=== PATIENT | female | born 1980 | race Caucasian/White ===

== ENCOUNTER 2016-12-11 07:48 | Emergency (ER) | payer SELFPAY ==
--- NOTE | 2016-12-11 09:25 | ED NURSING NOTES ---
Clinical Report - Nurses [facility] [address] [place] [address] 12/11/2016 7:50 Patient: CRESCENCIO ROBERTS TRIAGE Acuity: LEVEL 4. Chief Complaint: (Possible Opiate Withdrawls). 07:59 12/11/16. 07:59 12/11/16. ( Step Mother states that pt has been taking large dose of methadone/Xanax/Percocet, pt wanted to stop taking these meds, last time pt took these meds was . Now pt is withdrawing from these meds. Step mother states that pt has been getting these meds from a family member and they are not her RX.). SEPSIS SCREEN: Sepsis Screen. Negative (no infection suspected/documented). KALEY COMA SCORE: [place] Coma Scale: 15- eyes open spontaneously (4); best verbal response- oriented x 4 (5); best motor response- obeys commands (6). --08:07 Jey Bowman R.N. 07:58 12/11/16. BP: 129/71. HR: 65. RR: 18. O2 saturation: 99% on room air. Temp: 98.7 F (oral). --08:07 Jey Bowman R.N. Weight: 90.7 kg stated. Height/Length: 65 inches Per Patient. BMI: 33.3. --07:59 Jey Bowman R.N. Medications Methadone HCl Oral, , 70-80mg daily. --08:03 Jey Bowman R.N. Percocet Oral, as needed, Unsure of dose, TID. --08:04 Jey Bowman R.N. Xanax Oral, , 2 mg at night, two times a day. --08:04 Jey Bowman R.N. Medication/allergy information source: the patient and patient's family. --08:07 Jey Bowman R.N. Allergies No Known Drug Allergy. --08:05 Jey Bowman R.N. History Arrived by private vehicle. Historian: patient. Accompanied by family. Primary physician (Lamar Triana). 07:59 12/11/16. 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 PAST MEDICAL HX: Immunizations: up-to-date. Last normal menstrual period- 1 month ago. Denies current . SOCIAL HX: Never smoker. Occasional alcohol use. No drug use. No infectious disease exposure. ABUSE ASSESSMENT: No report of abuse. FALL RISK ASSESSMENT: Fall risk assessment completed. No fall risk identified. NUTRITIONAL RISK ASSESSMENT: The nutritional risk assessment revealed no deficiencies. FUNCTIONAL ASSESSMENT: Functional assessment: no impairments noted. LEARNING NEEDS ASSESSMENT: The learning needs assessment revealed no barriers. SKIN INTEGRITY ASSESSMENT: Skin integrity risk assessment completed. No skin integrity risk identified. --08:07 Jey Bowman R.N. PROBLEMS: Seizure. --08:06 Jey Bowman R.N. Anxiety attack. Depression. --08:06 Jey Bowman R.N. ADDITIONAL SURGERIES: Neck Surgery. --08:05 Jey Bowman R.N. Assessment 07:59 12/11/16. --08:07 Jey Bowman R.N. Interventions 07:59 12/11/16. 07:59 12/11/16. ID and allergy band on patient. To treatment room. --08:07 Jey Bowman R.N. PHYSICAL ASSESSMENT 08:07 12/11/16. Ambulatory to room. GENERAL / NEURO / PSYCH: Oriented X 4. Appears anxious. RESPIRATORY: Respirations not labored. CVS: Capillary refill less than 2 seconds. SKIN: Skin is warm and dry. --08:07 Jey Bowman R.N. NURSING PROGRESS NOTES 08:07 12/11/16. The plan of care for this patient has been created. Patient gowned. Head of bed elevated. Reassurance given. Two patient identifiers checked. Call light placed in reach. Side rails up x 2. Bed placed in lowest position. Brakes of bed on. Patient ready for evaluation- chart flagged and notification provided. --08:07 Jey Bowman R.N. ( called [facility] in [place] . Pt. is to call for a pre-admit screening. [phone]). --09:29 Kat Leon, ER Tech1 09:34 12/11/2016 Clonidine PO 0.1 mg given. Allergies verified and confirmed 5 rights. --09:34 Jey Bowman R.N. 09:34 12/11/2016 Ativan (LORazepam) IM 1 mg given. Given in the right ventral gluteus. Allergies verified, confirmed 5 rights and sedative warning given to the patient. --09:34 Jey Bowman R.N. 09:34 12/11/2016 Phenergan (Promethazine HCl) IM 25 mg given. Given in the right gluteus renetta. Allergies verified, confirmed 5 rights and sedative warning given to the patient. --09:34 Jey Bowman R.N. 09:35 12/11/2016 Zofran ODT (Ondansetron) PO 4 mg given. Allergies verified and confirmed 5 rights. --09:35 Jey Bowman R.N. DISPOSITION / DISCHARGE 10:12/11/16. Condition at departure: improved. The goals identified in the patient's plan of care were met. No learning barriers present. Discharge instructions provided and reviewed with the patient and family. Reviewed warnings. Reviewed medication(s). Treatments reviewed. Patient and family verbalized understanding. Written instructions provided in Azeri. ( Info given for Detox pt will follow up and make an intake appt today). The patient was discharged by the physician. She was discharged home and accompanied by family. She left the Emergency Department ambulatory and via private vehicle. Family member driving. FALL RISK ASSESSMENT: Fall risk assessment completed. No fall risk identified. --10:04 Jey Bowman R.N. 10:04 12/11/16. Departure time: 10:04. --10:04 Jey Bowman R.N. 10:03 12/11/16. BP: 132/76. HR: 67. RR: 18. O2 saturation: 99% on room air. Temp: 98.2 F (oral). Pain level now: 09/06. --10:06 Jey Bowman R.N. Locked/Released at 12/11/2016 10:07 by Jey Bowman R.N.
--- NOTE | 2016-12-11 09:25 | ED ORDER SUMMARY ---
..... Patient: CRESCENCIO ROBERTS OrderSheet [facility] VisitID: [id number] [address] [place] [address] 36y, F Registration Date/Time: 12/11/2016 ORDER SHEET Weight: 90.7 kg (stated) Allergies: No Known Drug Allergy GENERAL ORDERS: MEDICATION ORDERS: Clonidine PO 0.1 mg (NOW) (:12/11/2016 [facility]) (Ack 9:22 JBoardley R.N.) (9:34 JBoardley R.N.) Ativan IM 1 mg (NOW) (:12/11/2016 [facility]) (Ack 9:22 JBoardley R.N.) (9:34 JBoardley R.N.) Phenergan IM 25 mg (NOW) (:12/11/2016 [facility]) (Ack 9:22 JBoardley R.N.) (9:34 JBoardley R.N.) Zofran ODT PO 4 mg (NOW) (:12/11/2016 [facility]) (Ack 9:22 JBoardley R.N.) (9:35 JBoardley R.N.) IV FLUIDS: ORDER SHEET NOTES: [Electronically signed by Jey Bowman R.N. (10:07 12/11/2016)] [Electronically signed by Jasvir Fong DO (10:48 12/12/2016)] [Electronically locked/signed by Jey Bowman R.N. (10:12/11/2016)]
--- NOTE | 2016-12-11 09:25 | ED ORDER SUMMARY ---
..... Patient: CRESCENCIO ROBERTS OrderSheet [facility] VisitID: [id number] [address] [place] [address] 36y, F Registration Date/Time: 12/11/2016 ORDER SHEET Weight: 90.7 kg (stated) Allergies: No Known Drug Allergy GENERAL ORDERS: MEDICATION ORDERS: Clonidine PO 0.1 mg (NOW) (:12/11/2016 [facility]) (Ack 9:22 JBoardley R.N.) (9:34 JBoardley R.N.) Ativan IM 1 mg (NOW) (:12/11/2016 [facility]) (Ack 9:22 JBoardley R.N.) (9:34 JBoardley R.N.) Phenergan IM 25 mg (NOW) (:12/11/2016 [facility]) (Ack 9:22 JBoardley R.N.) (9:34 JBoardley R.N.) Zofran ODT PO 4 mg (NOW) (:12/11/2016 [facility]) (Ack 9:22 JBoardley R.N.) (9:35 JBoardley R.N.) IV FLUIDS: ORDER SHEET NOTES: [Electronically signed by Jey Bowman R.N. (10:07 12/11/2016)] [Electronically signed by Jasvir Fong DO (10:48 12/12/2016)] [Electronically locked/signed by Jey Bowman R.N. (10:12/11/2016)]
--- NOTE | 2016-12-11 09:25 | ED NURSING NOTES ---
Clinical Report - Nurses [facility] [address] [place] [address] 12/11/2016 7:50 Patient: CRESCENCIO ROBERTS TRIAGE Acuity: LEVEL 4. Chief Complaint: (Possible Opiate Withdrawls). 07:59 12/11/16. 07:59 12/11/16. ( Step Mother states that pt has been taking large dose of methadone/Xanax/Percocet, pt wanted to stop taking these meds, last time pt took these meds was . Now pt is withdrawing from these meds. Step mother states that pt has been getting these meds from a family member and they are not her RX.). SEPSIS SCREEN: Sepsis Screen. Negative (no infection suspected/documented). KALEY COMA SCORE: [place] Coma Scale: 15- eyes open spontaneously (4); best verbal response- oriented x 4 (5); best motor response- obeys commands (6). --08:07 Jey Bowman R.N. 07:58 12/11/16. BP: 129/71. HR: 65. RR: 18. O2 saturation: 99% on room air. Temp: 98.7 F (oral). --08:07 Jey Bowman R.N. Weight: 90.7 kg stated. Height/Length: 65 inches Per Patient. BMI: 33.3. --07:59 Jey Bowman R.N. Medications Methadone HCl Oral, , 70-80mg daily. --08:03 Jey Bowman R.N. Percocet Oral, as needed, Unsure of dose, TID. --08:04 Jey Bowman R.N. Xanax Oral, , 2 mg at night, two times a day. --08:04 Jey Bowman R.N. Medication/allergy information source: the patient and patient's family. --08:07 Jey Bowman R.N. Allergies No Known Drug Allergy. --08:05 Jey Bowman R.N. History Arrived by private vehicle. Historian: patient. Accompanied by family. Primary physician (Lamar Triana). 07:59 12/11/16. 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 PAST MEDICAL HX: Immunizations: up-to-date. Last normal menstrual period- 1 month ago. Denies current . SOCIAL HX: Never smoker. Occasional alcohol use. No drug use. No infectious disease exposure. ABUSE ASSESSMENT: No report of abuse. FALL RISK ASSESSMENT: Fall risk assessment completed. No fall risk identified. NUTRITIONAL RISK ASSESSMENT: The nutritional risk assessment revealed no deficiencies. FUNCTIONAL ASSESSMENT: Functional assessment: no impairments noted. LEARNING NEEDS ASSESSMENT: The learning needs assessment revealed no barriers. SKIN INTEGRITY ASSESSMENT: Skin integrity risk assessment completed. No skin integrity risk identified. --08:07 Jey Bowman R.N. PROBLEMS: Seizure. --08:06 Jey Bowman R.N. Anxiety attack. Depression. --08:06 Jey Bowman R.N. ADDITIONAL SURGERIES: Neck Surgery. --08:05 Jey Bowman R.N. Assessment 07:59 12/11/16. --08:07 Jey Bowman R.N. Interventions 07:59 12/11/16. 07:59 12/11/16. ID and allergy band on patient. To treatment room. --08:07 Jey Bowman R.N. PHYSICAL ASSESSMENT 08:07 12/11/16. Ambulatory to room. GENERAL / NEURO / PSYCH: Oriented X 4. Appears anxious. RESPIRATORY: Respirations not labored. CVS: Capillary refill less than 2 seconds. SKIN: Skin is warm and dry. --08:07 Jey Bowman R.N. NURSING PROGRESS NOTES 08:07 12/11/16. The plan of care for this patient has been created. Patient gowned. Head of bed elevated. Reassurance given. Two patient identifiers checked. Call light placed in reach. Side rails up x 2. Bed placed in lowest position. Brakes of bed on. Patient ready for evaluation- chart flagged and notification provided. --08:07 Jey Bowman R.N. ( called [facility] in [place] . Pt. is to call for a pre-admit screening. [phone]). --09:29 Kat Leon, ER Tech1 09:34 12/11/2016 Clonidine PO 0.1 mg given. Allergies verified and confirmed 5 rights. --09:34 Jey Bowman R.N. 09:34 12/11/2016 Ativan (LORazepam) IM 1 mg given. Given in the right ventral gluteus. Allergies verified, confirmed 5 rights and sedative warning given to the patient. --09:34 Jey Bowman R.N. 09:34 12/11/2016 Phenergan (Promethazine HCl) IM 25 mg given. Given in the right gluteus renetta. Allergies verified, confirmed 5 rights and sedative warning given to the patient. --09:34 Jey Bowman R.N. 09:35 12/11/2016 Zofran ODT (Ondansetron) PO 4 mg given. Allergies verified and confirmed 5 rights. --09:35 Jey Bowman R.N. DISPOSITION / DISCHARGE 10:12/11/16. Condition at departure: improved. The goals identified in the patient's plan of care were met. No learning barriers present. Discharge instructions provided and reviewed with the patient and family. Reviewed warnings. Reviewed medication(s). Treatments reviewed. Patient and family verbalized understanding. Written instructions provided in Bulgarian. ( Info given for Detox pt will follow up and make an intake appt today). The patient was discharged by the physician. She was discharged home and accompanied by family. She left the Emergency Department ambulatory and via private vehicle. Family member driving. FALL RISK ASSESSMENT: Fall risk assessment completed. No fall risk identified. --10:04 Jey Bowman R.N. 10:04 12/11/16. Departure time: 10:04. --10:04 Jey Bowman R.N. 10:03 12/11/16. BP: 132/76. HR: 67. RR: 18. O2 saturation: 99% on room air. Temp: 98.2 F (oral). Pain level now: 09/06. --10:06 Jey Bowman R.N. Locked/Released at 12/11/2016 10:07 by Jey Bowman R.N.
--- NOTE | 2016-12-11 09:25 | ED CLINICAL REPORT ---
Clinical Report - Physicians/Mid Levels [facility] [address] [place] [address] 12/11/2016 7:50 Patient: CRESCENCIO ROBERTS Time Seen: 09:00. Arrived- By private vehicle. Historian- patient and family. HISTORY OF PRESENT ILLNESS Chief Complaint: AGITATED. Symptoms started yesterday. Duration of substance abuse- about 2 years. Substances abused: (about 24 hours ago). The patient has had nausea. She has had moderate vomiting. The vomiting has occurred several times. No blood-tinged emesis or frankly bloody emesis. Step Mother states that pt has been taking large dose of methadone/Xanax/Percocet, pt wanted to stop taking these meds, last time pt took these meds was . Now pt is withdrawing from these meds. Step mother states that pt has been getting these meds from a family member and they are not her RX. The symptoms are described as moderate. No injuries noted. Similar symptoms previously: Recent medical care: Not recently seen/assessed. REVIEW OF SYSTEMS Last normal menstrual period was 4 weeks ago. No sweats, headache, weakness, chest pain or palpitations. No black stools, numbness, bloody stools, sore throat or difficulty breathing. No skin abscess. No difficulty walking. The patient has had moderate diarrhea. It has been watery. No bloody diarrhea. All systems otherwise negative, except as recorded above. PAST HISTORY Primary physician (Lamar Triana) PROBLEMS: Seizure. Anxiety attack. Depression. SURGERIES: Neck Surgery. Medications: Xanax Oral, , 2 mg at night, two times a day. Percocet Oral, as needed, Unsure of dose, TID. Methadone HCl Oral, , 70-80mg daily. Allergies: No Known Drug Allergy. SOCIAL HISTORY Never smoker. Occasional alcohol use. No drug use. Has social support. ADDITIONAL NOTES The nursing notes have been reviewed. PHYSICAL EXAM Vital Signs: 12/11/2016 07:58 BP: 129/71. HR: 65. RR: 18. O2 saturation: 99%. Temp: 98.7 F. Appearance: Alert. Oriented X3. Anxious. The patient is agitated. Odor of alcohol is not present. Speech is not slurred. Patient in mild distress. Head: Head atraumatic. Eyes: Pupils equal, round and reactive to light. ENT: Normal ENT inspection. Airway intact. Moist mucous membranes. Pharynx normal. Neck: Normal inspection. Neck supple. CVS: Normal heart rate and rhythm. Heart sounds normal. Pulses normal. Respiratory: No respiratory distress. Breath sounds normal. Abdomen: Soft and nontender. Obese. Back: Normal inspection. No CVA tenderness. Skin: Skin warm and dry. Normal skin color. No rash. Normal skin turgor. Extremities: Extremities exhibit normal ROM. No calf tenderness. No lower extremity edema. Neuro: Alert. Oriented X 3. Speech normal. Cranial nerves normal (as tested). No cerebellar findings. No motor deficit. No sensory deficit. Reflexes normal. Reflex exam: right patellar 2+, left patellar 2+, right Achilles 1+ and left Achilles 1+. LABS, X-RAYS, AND EKG Pulse Oximetry: 12/11/2016 07:58 O2 saturation: 99%. (FIO2 - room air). Interpretation: normal. PROGRESS AND PROCEDURES Course of Care: Ativan 1mg IM given. Phenergan 25mg IM given. Zofran 4 mg ODT PO given. Clonidine 0.1 mg PO given. Early withdrawal now - normal VS. Pt has pcp and will f/u closely and / or return to emergency for new or worsening symptoms or any concerns. Good social support. Patient/family counseled. Prior records not ordered. Disposition: Discharged. Condition: stable and improved. CLINICAL IMPRESSION Chronic substance abuse- benzodiazepines, oxycodone with anxiety. INSTRUCTIONS Do not work for five days. No alcohol. (I strongly recommend you go to a detox center as soon as possible). Warnings: Further evaluation is necessary. It is very important to follow up with a physician. SEDATIVE MEDICATION: You were given sedative medication during your visit. Do not drive or operate dangerous machinery. CONTROLLED SUBSTANCE WARNINGS. GENERAL WARNINGS: Return or contact your physician immediately if your condition worsens or changes unexpectedly, if not improving as expected, or if other problems arise. Your Current Medications: STOP TAKING THE FOLLOWING MEDICATIONS: Methadone HCl Oral : 70-80mg daily. Percocet Oral : prn, Unsure of dose, TID. Xanax Oral : 2 mg at night, two times a day. Prescription Medications: Zofran (orally disintegrating tablets) 4 mg: take 1-2 orally every 8 hours as needed for nausea and vomiting. Dispense ten (10). No refill. Substitution is permissible. Ativan 0.5 mg: take 1-2 orally every 8 hours as needed for anxiety. Dispense ten (10). No refill. Substitution is permissible. Clonidine 0.1 mg: Take 1 orally every 12 hours. Dispense thirty (30). No refills. Phenergan suppositories 25 mg: Insert 1 rectally every 4 to 6 hours as needed for nausea or vomiting. Dispense ten (10). No refills. Substitution is permissible. Follow-up: Follow up with your doctor tomorrow. (Electronically signed by Jasvir Fong DO 12/12/2016 10:48)
--- NOTE | 2016-12-12 10:49 | ED DISCHARGE INSTRUCTIONS ---
Patient: CRESCENCIO ROBERTS General Instructions [facility] VisitID: [id number] [place] [address] 36y, F Registration Date/Time: 12/11/2016 Chronic substance abuse- benzodiazepines, oxycodone with anxiety. INSTRUCTIONS Do not work for five days. No alcohol. (I strongly recommend you go to a detox center as soon as possible). Warnings: Further evaluation is necessary. It is very important to follow up with a physician. SEDATIVE MEDICATION: You were given sedative medication during your visit. Do not drive or operate dangerous machinery. CONTROLLED SUBSTANCE WARNINGS. GENERAL WARNINGS: Return or contact your physician immediately if your condition worsens or changes unexpectedly, if not improving as expected, or if other problems arise. Your Current Medications: STOP TAKING THE FOLLOWING MEDICATIONS: Methadone HCl Oral : 70-80mg daily. Percocet Oral : prn, Unsure of dose, TID. Xanax Oral : 2 mg at night, two times a day. Prescription Medications: Zofran (orally disintegrating tablets) 4 mg: take 1-2 orally every 8 hours as needed for nausea and vomiting. Dispense ten (10). No refill. Substitution is permissible. Ativan 0.5 mg: take 1-2 orally every 8 hours as needed for anxiety. Dispense ten (10). No refill. Substitution is permissible. Clonidine 0.1 mg: Take 1 orally every 12 hours. Dispense thirty (30). No refills. Phenergan suppositories 25 mg: Insert 1 rectally every 4 to 6 hours as needed for nausea or vomiting. Dispense ten (10). No refills. Substitution is permissible. Follow-up: Follow up with your doctor tomorrow. ADDITIONAL INFORMATION Alcohol Withdrawal Alcohol withdrawal symptoms occur if you have been drinking steadily for at least several days, and your body gets used to the effect of alcohol. When you suddenly stop drinking (or, even just cut down your daily intake but continue to drink), you may develop alcohol withdrawal, also called the The usual symptoms last 3-4 days and include nervousness, shakiness, nausea, sweating, sleeplessness. In severe cases hallucinations (seeing things that are not there) and seizures can occur. Home Care: You will need plenty of rest and fluids over the next several days. Eat regular meals. Of course, do not drink any more alcohol. During this time, it is best that you stay with family or friends who can help and support you. You can also admit yourself to a residential detox program. Do not drive until all symptoms are gone and you are feeling better. If you were given sedative medication to reduce your symptoms, do not take it more often than prescribed and never take it with alcohol. Follow Up: Once you have gone through the withdrawal symptoms, you have fought half of the prince. To avoid the risk of returning to your previous drinking pattern, it is essential that you get follow-up support and treatment. Alcoholics Anonymous offers support through a self-help fellowship. There are no dues or fees. See the Yellow Pages and call for time and place of meetings. www.aa.org [facility] offers support to families of alcohol users. 411.997.9228 www.al-anon.org National [place] On Alcoholism And Drug Dependence 576-696-9434 www.ncadd.org Residential alcohol detox programs are available. Check the Yellow Pages under Drug Abuse & Treatment Centers. Get Prompt Medical Attention if any of the following occur: Severe shakiness Hallucinations Seizure Fever over 100.5 F (38.0 C) oral Headache, confusion, extreme drowsiness, inability to awaken Increasing upper abdominal pain Repeated vomiting or vomiting blood Opiate Abuse Use and abuse of heroin or prescription pain medicines (Vicodin, codeine) may lead to physical ADDICTION or psychological DEPENDENCE. Once this occurs, you are at greater risk for any of the following: - Craving for the drug and unable to stop using the drug even though you think you want to stop (psychological dependence) - Drug withdrawal symptoms if you stop taking the drug (physical addiction) - Loss of your job or your family - Arrest, conviction and custodial sentence for possession of an illegal substance or for driving under the influence of such a substance - Accidental injuries to yourself or others while you are under the influence of the drug (in a car or at home). - HIV infection (much greater risk if you use IV drugs) - Other sexually transmitted diseases (Herpes, chlamydia, gonorrhea and others) - Severe and fatal infection of the heart valves (if you use IV drugs) - Stroke, heart attack, hepatitis B or C, kidney failure - from overdose Home Care: 1) Admit you have a drug problem. Ask for help from your family and close friends. 2) Seek professional help. This could be individual psychotherapy, counseling, or a drug treatment program (outpatient or residential). 3) Join a self-help group for drug abuse. 4) Avoid friends who abuse drugs themselves or tempt you to continue your habit 5) Eat a balanced diet and begin a regular exercise program. Follow Up with your doctor or as advised by our staff. Contact one of the resources below for help. [employer] [place] on Alcoholism and Drug Dependence, www.ncadd.org 709-351-KYPX Narcotics Anonymous (check your phone book for a local listing or call 501-300-6141) www.na.org National Alcohol and Substance Abuse Information Center (for referral to treatment programs) Www.eBureau 522-947-5801 Get Prompt Medical Attention if any of the following occur: -- Symptoms of withdrawal (agitation, anxiety, trembling, sweats, diarrhea, unable to sleep) -- Chest pain -- Unexplained fever over 100.4 F (38.0 C) -- Excessive drowsiness or inability to be awakened -- Slow breathing under 8 breaths per minute -- Shortness of breath or cough with colored sputum -- Redness, swelling or tenderness at an injection site Ondansetron Oral disintegrating tablet What is this medicine? ONDANSETRON (on IFRAH se davy) is used to treat nausea and vomiting caused by chemotherapy. It is also used to prevent or treat nausea and vomiting after surgery. How should I use this medicine? These tablets are made to dissolve in the mouth. Do not try to push the tablet through the foil backing. With dry hands, peel away the foil backing and gently remove the tablet. Place the tablet in the mouth and allow it to dissolve, then swallow. While you may take these tablets with water, it is not necessary to do so. Talk to your tinning equipment tender regarding the use of this medicine in children. Special care may be needed. What side effects may I notice from receiving this medicine? Side effects that you should report to your doctor or health grounds caretaker as soon as possible: allergic reactions like skin rash, itching or hives, swelling of the face, lips, or tongue breathing problems dizziness fast or irregular heartbeat feeling faint or lightheaded, falls fever and chills swelling of the hands and feet tightness in the chest Side effects that usually do not require medical attention (report to your doctor or health grounds caretaker if they continue or are bothersome): constipation or diarrhea headache What may interact with this medicine? Do not take this medicine with any of the following medications: -apomorphine -cisapride -dofetilide -dronedarone -pimozide -thioridazine -ziprasidone This medicine may also interact with the following medications: -carbamazepine -phenytoin -rifampicin -tramadol -other medicines that prolong the QT interval (cause an abnormal heart rhythm) What if I miss a dose? If you miss a dose, take it as soon as you can. If it is almost time for your next dose, take only that dose. Do not take double or extra doses. Where should I keep my medicine? Keep out of the reach of children. Store between 2 and 30 degrees C (36 and 86 degrees F). Throw away any unused medicine after the expiration date. What should I tell my health care provider before I take this medicine? They need to know if you have any of these conditions: heart disease history of irregular heartbeat liver disease low levels of magnesium or potassium in the blood an unusual or allergic reaction to ondansetron, granisetron, other medicines, foods, dyes, or preservatives or trying to get breast-feeding What should I watch for while using this medicine? Check with your doctor or health grounds caretaker as soon as you can if you have any sign of an allergic reaction. Lorazepam Oral tablet What is this medicine? LORAZEPAM (marvin A ze paulette) is a benzodiazepine. It is used to treat anxiety. How should I use this medicine? Take this medicine by mouth with a glass of water. Follow the directions on the prescription label. If it upsets your stomach, take it with food or milk. Take your medicine at regular intervals. Do not take it more often than directed. Do not stop taking except on the advice of your doctor or health grounds caretaker. Talk to your tinning equipment tender regarding the use of this medicine in children. Special care may be needed. What side effects may I notice from receiving this medicine? Side effects that you should report to your doctor or health grounds caretaker as soon as possible: changes in vision confusion depression mood changes, excitability or aggressive behavior movement difficulty, staggering or jerky movements muscle cramps restlessness weakness or tiredness Side effects that usually do not require medical attention (report to your doctor or health grounds caretaker if they continue or are bothersome): constipation or diarrhea difficulty sleeping, nightmares dizziness, drowsiness headache nausea, vomiting What may interact with this medicine? barbiturate medicines for inducing sleep or treating seizures, like phenobarbital clozapine medicines for depression, mental problems or psychiatric disturbances medicines for sleep phenytoin probenecid theophylline valproic acid What if I miss a dose? If you miss a dose, take it as soon as you can. If it is almost time for your next dose, take only that dose. Do not take double or extra doses. Where should I keep my medicine? Keep out of the reach of children. This medicine can be abused. Keep your medicine in a safe place to protect it from theft. Do not share this medicine with anyone. Selling or giving away this medicine is dangerous and against the law. Store at room temperature between 20 and 25 degrees C (68 and 77 degrees F). Protect from light. Keep container tightly closed. Throw away any unused medicine after the expiration date. What should I tell my health care provider before I take this medicine? They need to know if you have any of these conditions: alcohol or drug abuse problem bipolar disorder, depression, psychosis or other mental health condition glaucoma kidney or liver disease lung disease or breathing difficulties myasthenia gravis Parkinson's disease seizures or a history of seizures suicidal thoughts an unusual or allergic reaction to lorazepam, other benzodiazepines, foods, dyes, or preservatives or trying to get breast-feeding What should I watch for while using this medicine? Visit your doctor or health grounds caretaker for regular checks on your progress. Your body may become dependent on this medicine, ask your doctor or health grounds caretaker if you still need to take it. However, if you have been taking this medicine regularly for some time, do not suddenly stop taking it. You must gradually reduce the dose or you may get severe side effects. Ask your doctor or health grounds caretaker for advice before increasing or decreasing the dose. Even after you stop taking this medicine it can still affect your body for several days. You may get drowsy or dizzy. Do not drive, use machinery, or do anything that needs mental alertness until you know how this medicine affects you. To reduce the risk of dizzy and fainting spells, do not stand or sit up quickly, especially if you are an older patient. Alcohol may increase dizziness and drowsiness. Avoid alcoholic drinks. Do not treat yourself for coughs, colds or allergies without asking your doctor or health grounds caretaker for advice. Some ingredients can increase possible side effects. Clonidine Hydrochloride Oral tablet What is this medicine? CLONIDINE (KLOE ni chantel) is used to treat high blood pressure. How should I use this medicine? Take this medicine by mouth with a glass of water. Follow the directions on the prescription label. Take your doses at regular intervals. Do not take your medicine more often than directed. Do not suddenly stop taking this medicine. You must gradually reduce the dose or you may get a dangerous increase in blood pressure. Ask your doctor or health grounds caretaker for advice. Talk to your tinning equipment tender regarding the use of this medicine in children. Special care may be needed. What side effects may I notice from receiving this medicine? Side effects that you should report to your doctor or health grounds caretaker as soon as possible: allergic reactions like skin rash, itching or hives, swelling of the face, lips, or tongue anxiety, nervousness chest pain depression fast, irregular heartbeat swelling of feet or legs unusually weak or tired Side effects that usually do not require medical attention (report to your doctor or health grounds caretaker if they continue or are bothersome): change in sex drive or performance constipation headache What may interact with this medicine? Do not take this medicine with any of the following medications: MAOIs like Carbex, Eldepryl, Marplan, Nardil, and Parnate This medicine may also interact with the following medications: barbiturate medicines for inducing sleep or treating seizures like phenobarbital certain medicines for blood pressure, heart disease, irregular heart beat certain medicines for depression, anxiety, or psychotic disturbances prescription pain medicines What if I miss a dose? If you miss a dose, take it as soon as you can. If it is almost time for your next dose, take only that dose. Do not take double or extra doses. Where should I keep my medicine? Keep out of the reach of children. Store at room temperature between 15 and 30 degrees C (59 and 86 degrees F). Protect from light. Keep container tightly closed. Throw away any unused medicine after the expiration date. What should I tell my health care provider before I take this medicine? They need to know if you have any of these conditions: kidney disease an unusual or allergic reaction to clonidine, other medicines, foods, dyes, or preservatives or trying to get breast-feeding What should I watch for while using this medicine? Visit your doctor or health grounds caretaker for regular checks on your progress. Check your heart rate and blood pressure regularly while you are taking this medicine. Ask your doctor or health grounds caretaker what your heart rate should be and when you should contact him or her. You may get drowsy or dizzy. Do not drive, use machinery, or do anything that needs mental alertness until you know how this medicine affects you. To avoid dizzy or fainting spells, do not stand or sit up quickly, especially if you are an older person. Alcohol can make you more drowsy and dizzy. Avoid alcoholic drinks. Your mouth may get dry. Chewing sugarless gum or sucking hard candy, and drinking plenty of water will help. Do not treat yourself for coughs, colds, or pain while you are taking this medicine without asking your doctor or health grounds caretaker for advice. Some ingredients may increase your blood pressure. If you are going to have surgery tell your doctor or health grounds caretaker that you are taking this medicine. Promethazine Hydrochloride Rectal suppository What is this medicine? PROMETHAZINE (proe METH a zeen) is an antihistamine. It is used to treat allergic reactions and to treat or prevent nausea and vomiting from illness or motion sickness. It is also used to make you sleep before surgery, and to help treat pain or nausea after surgery. How should I use this medicine? This medicine is for rectal use only. Do not take by mouth. Wash your hands before and after use. Take off the foil wrapping. Wet the tip of the suppository with cold tap water to make it easier to use. Lie on your side with your lower leg straightened out and your upper leg bent forward toward your stomach. Lift upper buttock to expose the rectal area. Apply gentle pressure to insert the suppository completely into the rectum, pointed end first. Hold buttocks together for a few seconds. Remain lying down for about 15 minutes to avoid having the suppository come out. Do not use more often than directed. Talk to your tinning equipment tender regarding the use of this medicine in children. Special care may be needed. This medicine should not be given to infants and children younger than 2 years old. What side effects may I notice from receiving this medicine? Side effects that you should report to your doctor or health grounds caretaker as soon as possible: blurred vision irregular heartbeat, palpitations or chest pain muscle or facial twitches pain or difficulty passing urine seizures skin rash slowed or shallow breathing unusual bleeding or bruising yellowing of the eyes or skin Side effects that usually do not require medical attention (report to your doctor or health grounds caretaker if they continue or are bothersome): headache nightmares, agitation, nervousness, excitability, not able to sleep (these are more likely in children) stuffy nose What may interact with this medicine? Do not take this medicine with any of the following medications: medicines called MAO Inhibitors like Nardil, Parnate, Marplan, Eldepryl other phenothiazines like trimethobenzamide This medicine may also interact with the following medications: barbiturates such as phenobarbital bromocriptine certain antidepressants certain antihistamines used in allergy or cold medicines epinephrine levodopa medicines for sleep medicines for mental problems and psychotic disturbances medicines for movement abnormalities as in Parkinson's disease, or for gastrointestinal problems muscle relaxants prescription pain medicines What if I miss a dose? If you miss a dose, use it as soon as you can. If it is almost time for your next dose, use only that dose. Do not use double doses. Where should I keep my medicine? Keep out of the reach of children. Store in a refrigerator between 2 and 8 degrees C (36 and 46 degrees F). Throw away any unused medicine after the expiration date. What should I tell my health care provider before I take this medicine? They need to know if you have any of these conditions: glaucoma high blood pressure or heart disease kidney disease liver disease lung or breathing disease, like asthma prostate trouble pain or difficulty passing urine seizures an unusual or allergic reaction to promethazine or phenothiazines, other medicines, foods, dyes, or preservatives or trying to get breast-feeding What should I watch for while using this medicine? Tell your doctor or health grounds caretaker if your symptoms do not start to get better in 1 to 2 days. You may get drowsy or dizzy. Do not drive, use machinery, or do anything that needs mental alertness until you know how this medicine affects you. To reduce the risk of dizzy or fainting spells, do not stand or sit up quickly, especially if you are an older patient. Alcohol may increase dizziness and drowsiness. Avoid alcoholic drinks. Your mouth may get dry. Chewing sugarless gum or sucking hard candy, and drinking plenty of water may help. Contact your doctor if the problem does not go away or is severe. This medicine may cause dry eyes and blurred vision. If you wear contact lenses you may feel some discomfort. Lubricating drops may help. See your eye doctor if the problem does not go away or is severe. This medicine can make you more sensitive to the sun. Keep out of the sun. If you cannot avoid being in the sun, wear protective clothing and use sunscreen. Do not use sun lamps or tanning beds/booths. If you are diabetic, check your blood-sugar levels regularly. You have been given the following additional information: Alcohol Withdrawal Opiate Abuse Ondansetron Oral disintegrating tablet Lorazepam Oral tablet Clonidine Hydrochloride Oral tablet Promethazine Hydrochloride Rectal suppository Do not work for five days. (Electronically signed by Jasvir Fong DO 12/12/2016 10:48)
--- NOTE | 2016-12-12 10:49 | ED MAR SUMMARY ---
..... Medication Administration Record [facility] [address] [place] [address] Patient: CRESCENCIO ROBERTS Visit ID: [id number] 36y, F Weight: 90.7 kg Height/Length: 65 in BMI: 33.3 ALLERGIES: No Known Drug Allergy Given 12/11/2016 Jey Bowman R.N. Medication Administered: CLONIDINE [PO], Dose: 0.1 mg PO. Medication Ordered: Clonidine PO 0.1 mg (NOW). Given 12/11/2016 Jey Bowman R.N. Medication Administered: ATIVAN [IM] (LORAZEPAM), Dose: 1 mg IM. Medication Ordered: Ativan IM 1 mg (NOW). Given 12/11/2016 Jey Bowman R.N. Medication Administered: PHENERGAN [IM] (PROMETHAZINE HCL), Dose: 25 mg IM. Medication Ordered: Phenergan IM 25 mg (NOW). Given 12/11/2016 Jey Bowman R.N. Medication Administered: ZOFRAN ODT [PO] (ONDANSETRON), Dose: 4 mg PO. Medication Ordered: Zofran ODT PO 4 mg (NOW).
--- NOTE | 2016-12-12 10:49 | ED MED RECONCILIATION SUMMARY ---
Patient: CRESECNCIO ROBERTS Medication Reconciliation Report [facility] VisitID: [id number] [place] [address] 36y, F Registration Date/Time: 12/11/2016 Weight: 90.7 kg Height/Length: 65 in. BMI: 33.3 ALLERGIES: No Known Drug Allergy The patient's Home Medications are listed below: STOP TAKING THE FOLLOWING MEDICATIONS: Methadone HCl Oral, 70-80mg daily Percocet Oral, Unsure of dose, TID Xanax Oral, 2 mg at night, two times a day The source(s) of the original Home Medication information: patient's family member patient The following Medications were given to the patient in the Emergency Department: Clonidine [PO] PO 0.1 mg, administered: 12/11/2016 9:34:00 AM Ativan [IM] IM 1 mg, administered: 12/11/2016 9:34:00 AM Phenergan [IM] IM 25 mg, administered: 12/11/2016 9:34:00 AM Zofran ODT [PO] PO 4 mg, administered: 12/11/2016 9:35:00 AM The following Medications were prescribed to the patient: Zofran (orally disintegrating tablets) 4 mg: take 1-2 orally every 8 hours as needed for nausea and vomiting. Dispense ten (10). No refill. Substitution is permissible. -- Jasvir Fong DO Ativan 0.5 mg: take 1-2 orally every 8 hours as needed for anxiety. Dispense ten (10). No refill. Substitution is permissible. -- Jasvir Fong DO Clonidine 0.1 mg: Take 1 orally every 12 hours. Dispense thirty (30). No refills. -- Jasvir Fong DO Phenergan suppositories 25 mg: Insert 1 rectally every 4 to 6 hours as needed for nausea or vomiting. Dispense ten (10). No refills. Substitution is permissible. -- Jasvir Fong DO
--- NOTE | 2016-12-12 10:49 | ED MED RECONCILIATION SUMMARY ---
Patient: CRESCENCIO ROBERTS Medication Reconciliation Report [facility] VisitID: [id number] [place] [address] 36y, F Registration Date/Time: 12/11/2016 Weight: 90.7 kg Height/Length: 65 in. BMI: 33.3 ALLERGIES: No Known Drug Allergy The patient's Home Medications are listed below: STOP TAKING THE FOLLOWING MEDICATIONS: Methadone HCl Oral, 70-80mg daily Percocet Oral, Unsure of dose, TID Xanax Oral, 2 mg at night, two times a day The source(s) of the original Home Medication information: patient's family member patient The following Medications were given to the patient in the Emergency Department: Clonidine [PO] PO 0.1 mg, administered: 12/11/2016 9:34:00 AM Ativan [IM] IM 1 mg, administered: 12/11/2016 9:34:00 AM Phenergan [IM] IM 25 mg, administered: 12/11/2016 9:34:00 AM Zofran ODT [PO] PO 4 mg, administered: 12/11/2016 9:35:00 AM The following Medications were prescribed to the patient: Zofran (orally disintegrating tablets) 4 mg: take 1-2 orally every 8 hours as needed for nausea and vomiting. Dispense ten (10). No refill. Substitution is permissible. -- Jasvir Fong DO Ativan 0.5 mg: take 1-2 orally every 8 hours as needed for anxiety. Dispense ten (10). No refill. Substitution is permissible. -- Jasvir Fong DO Clonidine 0.1 mg: Take 1 orally every 12 hours. Dispense thirty (30). No refills. -- Jasvir Fong DO Phenergan suppositories 25 mg: Insert 1 rectally every 4 to 6 hours as needed for nausea or vomiting. Dispense ten (10). No refills. Substitution is permissible. -- Jasvir Fong DO
--- NOTE | 2016-12-12 10:49 | ED MAR SUMMARY ---
..... Medication Administration Record [facility] [address] [place] [place] [address] Patient: CRESCENCIO ROBERTS Visit ID: [id number] 36y, F Weight: 90.7 kg Height/Length: 65 in BMI: 33.3 ALLERGIES: No Known Drug Allergy Given 12/11/2016 Jey Bowman R.N. Medication Administered: CLONIDINE [PO], Dose: 0.1 mg PO. Medication Ordered: Clonidine PO 0.1 mg (NOW). Given 12/11/2016 Jey Bowman R.N. Medication Administered: ATIVAN [IM] (LORAZEPAM), Dose: 1 mg IM. Medication Ordered: Ativan IM 1 mg (NOW). Given 12/11/2016 Jey Bowman R.N. Medication Administered: PHENERGAN [IM] (PROMETHAZINE HCL), Dose: 25 mg IM. Medication Ordered: Phenergan IM 25 mg (NOW). Given 12/11/2016 Jey Bowman R.N. Medication Administered: ZOFRAN ODT [PO] (ONDANSETRON), Dose: 4 mg PO. Medication Ordered: Zofran ODT PO 4 mg (NOW).
--- NOTE | 2016-12-12 10:49 | ED DISCHARGE INSTRUCTIONS ---
Patient: CRESCENCIO ROBERTS General Instructions [facility] VisitID: [id number] [place] [address] 36y, F Registration Date/Time: 12/11/2016 Chronic substance abuse- benzodiazepines, oxycodone with anxiety. INSTRUCTIONS Do not work for five days. No alcohol. (I strongly recommend you go to a detox center as soon as possible). Warnings: Further evaluation is necessary. It is very important to follow up with a physician. SEDATIVE MEDICATION: You were given sedative medication during your visit. Do not drive or operate dangerous machinery. CONTROLLED SUBSTANCE WARNINGS. GENERAL WARNINGS: Return or contact your physician immediately if your condition worsens or changes unexpectedly, if not improving as expected, or if other problems arise. Your Current Medications: STOP TAKING THE FOLLOWING MEDICATIONS: Methadone HCl Oral : 70-80mg daily. Percocet Oral : prn, Unsure of dose, TID. Xanax Oral : 2 mg at night, two times a day. Prescription Medications: Zofran (orally disintegrating tablets) 4 mg: take 1-2 orally every 8 hours as needed for nausea and vomiting. Dispense ten (10). No refill. Substitution is permissible. Ativan 0.5 mg: take 1-2 orally every 8 hours as needed for anxiety. Dispense ten (10). No refill. Substitution is permissible. Clonidine 0.1 mg: Take 1 orally every 12 hours. Dispense thirty (30). No refills. Phenergan suppositories 25 mg: Insert 1 rectally every 4 to 6 hours as needed for nausea or vomiting. Dispense ten (10). No refills. Substitution is permissible. Follow-up: Follow up with your doctor tomorrow. ADDITIONAL INFORMATION Alcohol Withdrawal Alcohol withdrawal symptoms occur if you have been drinking steadily for at least several days, and your body gets used to the effect of alcohol. When you suddenly stop drinking (or, even just cut down your daily intake but continue to drink), you may develop alcohol withdrawal, also called the The usual symptoms last 3-4 days and include nervousness, shakiness, nausea, sweating, sleeplessness. In severe cases hallucinations (seeing things that are not there) and seizures can occur. Home Care: You will need plenty of rest and fluids over the next several days. Eat regular meals. Of course, do not drink any more alcohol. During this time, it is best that you stay with family or friends who can help and support you. You can also admit yourself to a residential detox program. Do not drive until all symptoms are gone and you are feeling better. If you were given sedative medication to reduce your symptoms, do not take it more often than prescribed and never take it with alcohol. Follow Up: Once you have gone through the withdrawal symptoms, you have fought half of the prince. To avoid the risk of returning to your previous drinking pattern, it is essential that you get follow-up support and treatment. Alcoholics Anonymous offers support through a self-help fellowship. There are no dues or fees. See the Yellow Pages and call for time and place of meetings. www.aa.org [facility] offers support to families of alcohol users. 190.833.7345 www.al-anon.org National [place] On Alcoholism And Drug Dependence 253-574-6610 www.ncadd.org Residential alcohol detox programs are available. Check the Yellow Pages under Drug Abuse & Treatment Centers. Get Prompt Medical Attention if any of the following occur: Severe shakiness Hallucinations Seizure Fever over 100.5 F (38.0 C) oral Headache, confusion, extreme drowsiness, inability to awaken Increasing upper abdominal pain Repeated vomiting or vomiting blood Opiate Abuse Use and abuse of heroin or prescription pain medicines (Vicodin, codeine) may lead to physical ADDICTION or psychological DEPENDENCE. Once this occurs, you are at greater risk for any of the following: - Craving for the drug and unable to stop using the drug even though you think you want to stop (psychological dependence) - Drug withdrawal symptoms if you stop taking the drug (physical addiction) - Loss of your job or your family - Arrest, conviction and fpc sentence for possession of an illegal substance or for driving under the influence of such a substance - Accidental injuries to yourself or others while you are under the influence of the drug (in a car or at home). - HIV infection (much greater risk if you use IV drugs) - Other sexually transmitted diseases (Herpes, chlamydia, gonorrhea and others) - Severe and fatal infection of the heart valves (if you use IV drugs) - Stroke, heart attack, hepatitis B or C, kidney failure - from overdose Home Care: 1) Admit you have a drug problem. Ask for help from your family and close friends. 2) Seek professional help. This could be individual psychotherapy, counseling, or a drug treatment program (outpatient or residential). 3) Join a self-help group for drug abuse. 4) Avoid friends who abuse drugs themselves or tempt you to continue your habit 5) Eat a balanced diet and begin a regular exercise program. Follow Up with your doctor or as advised by our staff. Contact one of the resources below for help. National [place] on Alcoholism and Drug Dependence, www.ncadd.org 586-404-AUEM Narcotics Anonymous (check your phone book for a local listing or call 391-844-7576) www.na.org National Alcohol and Substance Abuse Information Center (for referral to treatment programs) Www.UBIKOD 228-253-8516 Get Prompt Medical Attention if any of the following occur: -- Symptoms of withdrawal (agitation, anxiety, trembling, sweats, diarrhea, unable to sleep) -- Chest pain -- Unexplained fever over 100.4 F (38.0 C) -- Excessive drowsiness or inability to be awakened -- Slow breathing under 8 breaths per minute -- Shortness of breath or cough with colored sputum -- Redness, swelling or tenderness at an injection site Ondansetron Oral disintegrating tablet What is this medicine? ONDANSETRON (on IFRAH se davy) is used to treat nausea and vomiting caused by chemotherapy. It is also used to prevent or treat nausea and vomiting after surgery. How should I use this medicine? These tablets are made to dissolve in the mouth. Do not try to push the tablet through the foil backing. With dry hands, peel away the foil backing and gently remove the tablet. Place the tablet in the mouth and allow it to dissolve, then swallow. While you may take these tablets with water, it is not necessary to do so. Talk to your loan teller regarding the use of this medicine in children. Special care may be needed. What side effects may I notice from receiving this medicine? Side effects that you should report to your doctor or health primary care provider as soon as possible: allergic reactions like skin rash, itching or hives, swelling of the face, lips, or tongue breathing problems dizziness fast or irregular heartbeat feeling faint or lightheaded, falls fever and chills swelling of the hands and feet tightness in the chest Side effects that usually do not require medical attention (report to your doctor or health primary care provider if they continue or are bothersome): constipation or diarrhea headache What may interact with this medicine? Do not take this medicine with any of the following medications: -apomorphine -cisapride -dofetilide -dronedarone -pimozide -thioridazine -ziprasidone This medicine may also interact with the following medications: -carbamazepine -phenytoin -rifampicin -tramadol -other medicines that prolong the QT interval (cause an abnormal heart rhythm) What if I miss a dose? If you miss a dose, take it as soon as you can. If it is almost time for your next dose, take only that dose. Do not take double or extra doses. Where should I keep my medicine? Keep out of the reach of children. Store between 2 and 30 degrees C (36 and 86 degrees F). Throw away any unused medicine after the expiration date. What should I tell my health care provider before I take this medicine? They need to know if you have any of these conditions: heart disease history of irregular heartbeat liver disease low levels of magnesium or potassium in the blood an unusual or allergic reaction to ondansetron, granisetron, other medicines, foods, dyes, or preservatives or trying to get breast-feeding What should I watch for while using this medicine? Check with your doctor or health primary care provider as soon as you can if you have any sign of an allergic reaction. Lorazepam Oral tablet What is this medicine? LORAZEPAM (marvin A ze paulette) is a benzodiazepine. It is used to treat anxiety. How should I use this medicine? Take this medicine by mouth with a glass of water. Follow the directions on the prescription label. If it upsets your stomach, take it with food or milk. Take your medicine at regular intervals. Do not take it more often than directed. Do not stop taking except on the advice of your doctor or health primary care provider. Talk to your loan teller regarding the use of this medicine in children. Special care may be needed. What side effects may I notice from receiving this medicine? Side effects that you should report to your doctor or health primary care provider as soon as possible: changes in vision confusion depression mood changes, excitability or aggressive behavior movement difficulty, staggering or jerky movements muscle cramps restlessness weakness or tiredness Side effects that usually do not require medical attention (report to your doctor or health primary care provider if they continue or are bothersome): constipation or diarrhea difficulty sleeping, nightmares dizziness, drowsiness headache nausea, vomiting What may interact with this medicine? barbiturate medicines for inducing sleep or treating seizures, like phenobarbital clozapine medicines for depression, mental problems or psychiatric disturbances medicines for sleep phenytoin probenecid theophylline valproic acid What if I miss a dose? If you miss a dose, take it as soon as you can. If it is almost time for your next dose, take only that dose. Do not take double or extra doses. Where should I keep my medicine? Keep out of the reach of children. This medicine can be abused. Keep your medicine in a safe place to protect it from theft. Do not share this medicine with anyone. Selling or giving away this medicine is dangerous and against the law. Store at room temperature between 20 and 25 degrees C (68 and 77 degrees F). Protect from light. Keep container tightly closed. Throw away any unused medicine after the expiration date. What should I tell my health care provider before I take this medicine? They need to know if you have any of these conditions: alcohol or drug abuse problem bipolar disorder, depression, psychosis or other mental health condition glaucoma kidney or liver disease lung disease or breathing difficulties myasthenia gravis Parkinson's disease seizures or a history of seizures suicidal thoughts an unusual or allergic reaction to lorazepam, other benzodiazepines, foods, dyes, or preservatives or trying to get breast-feeding What should I watch for while using this medicine? Visit your doctor or health primary care provider for regular checks on your progress. Your body may become dependent on this medicine, ask your doctor or health primary care provider if you still need to take it. However, if you have been taking this medicine regularly for some time, do not suddenly stop taking it. You must gradually reduce the dose or you may get severe side effects. Ask your doctor or health primary care provider for advice before increasing or decreasing the dose. Even after you stop taking this medicine it can still affect your body for several days. You may get drowsy or dizzy. Do not drive, use machinery, or do anything that needs mental alertness until you know how this medicine affects you. To reduce the risk of dizzy and fainting spells, do not stand or sit up quickly, especially if you are an older patient. Alcohol may increase dizziness and drowsiness. Avoid alcoholic drinks. Do not treat yourself for coughs, colds or allergies without asking your doctor or health primary care provider for advice. Some ingredients can increase possible side effects. Clonidine Hydrochloride Oral tablet What is this medicine? CLONIDINE (KLOE ni chantel) is used to treat high blood pressure. How should I use this medicine? Take this medicine by mouth with a glass of water. Follow the directions on the prescription label. Take your doses at regular intervals. Do not take your medicine more often than directed. Do not suddenly stop taking this medicine. You must gradually reduce the dose or you may get a dangerous increase in blood pressure. Ask your doctor or health primary care provider for advice. Talk to your loan teller regarding the use of this medicine in children. Special care may be needed. What side effects may I notice from receiving this medicine? Side effects that you should report to your doctor or health primary care provider as soon as possible: allergic reactions like skin rash, itching or hives, swelling of the face, lips, or tongue anxiety, nervousness chest pain depression fast, irregular heartbeat swelling of feet or legs unusually weak or tired Side effects that usually do not require medical attention (report to your doctor or health primary care provider if they continue or are bothersome): change in sex drive or performance constipation headache What may interact with this medicine? Do not take this medicine with any of the following medications: MAOIs like Carbex, Eldepryl, Marplan, Nardil, and Parnate This medicine may also interact with the following medications: barbiturate medicines for inducing sleep or treating seizures like phenobarbital certain medicines for blood pressure, heart disease, irregular heart beat certain medicines for depression, anxiety, or psychotic disturbances prescription pain medicines What if I miss a dose? If you miss a dose, take it as soon as you can. If it is almost time for your next dose, take only that dose. Do not take double or extra doses. Where should I keep my medicine? Keep out of the reach of children. Store at room temperature between 15 and 30 degrees C (59 and 86 degrees F). Protect from light. Keep container tightly closed. Throw away any unused medicine after the expiration date. What should I tell my health care provider before I take this medicine? They need to know if you have any of these conditions: kidney disease an unusual or allergic reaction to clonidine, other medicines, foods, dyes, or preservatives or trying to get breast-feeding What should I watch for while using this medicine? Visit your doctor or health primary care provider for regular checks on your progress. Check your heart rate and blood pressure regularly while you are taking this medicine. Ask your doctor or health primary care provider what your heart rate should be and when you should contact him or her. You may get drowsy or dizzy. Do not drive, use machinery, or do anything that needs mental alertness until you know how this medicine affects you. To avoid dizzy or fainting spells, do not stand or sit up quickly, especially if you are an older person. Alcohol can make you more drowsy and dizzy. Avoid alcoholic drinks. Your mouth may get dry. Chewing sugarless gum or sucking hard candy, and drinking plenty of water will help. Do not treat yourself for coughs, colds, or pain while you are taking this medicine without asking your doctor or health primary care provider for advice. Some ingredients may increase your blood pressure. If you are going to have surgery tell your doctor or health primary care provider that you are taking this medicine. Promethazine Hydrochloride Rectal suppository What is this medicine? PROMETHAZINE (proe METH a zeen) is an antihistamine. It is used to treat allergic reactions and to treat or prevent nausea and vomiting from illness or motion sickness. It is also used to make you sleep before surgery, and to help treat pain or nausea after surgery. How should I use this medicine? This medicine is for rectal use only. Do not take by mouth. Wash your hands before and after use. Take off the foil wrapping. Wet the tip of the suppository with cold tap water to make it easier to use. Lie on your side with your lower leg straightened out and your upper leg bent forward toward your stomach. Lift upper buttock to expose the rectal area. Apply gentle pressure to insert the suppository completely into the rectum, pointed end first. Hold buttocks together for a few seconds. Remain lying down for about 15 minutes to avoid having the suppository come out. Do not use more often than directed. Talk to your loan teller regarding the use of this medicine in children. Special care may be needed. This medicine should not be given to infants and children younger than 2 years old. What side effects may I notice from receiving this medicine? Side effects that you should report to your doctor or health primary care provider as soon as possible: blurred vision irregular heartbeat, palpitations or chest pain muscle or facial twitches pain or difficulty passing urine seizures skin rash slowed or shallow breathing unusual bleeding or bruising yellowing of the eyes or skin Side effects that usually do not require medical attention (report to your doctor or health primary care provider if they continue or are bothersome): headache nightmares, agitation, nervousness, excitability, not able to sleep (these are more likely in children) stuffy nose What may interact with this medicine? Do not take this medicine with any of the following medications: medicines called MAO Inhibitors like Nardil, Parnate, Marplan, Eldepryl other phenothiazines like trimethobenzamide This medicine may also interact with the following medications: barbiturates such as phenobarbital bromocriptine certain antidepressants certain antihistamines used in allergy or cold medicines epinephrine levodopa medicines for sleep medicines for mental problems and psychotic disturbances medicines for movement abnormalities as in Parkinson's disease, or for gastrointestinal problems muscle relaxants prescription pain medicines What if I miss a dose? If you miss a dose, use it as soon as you can. If it is almost time for your next dose, use only that dose. Do not use double doses. Where should I keep my medicine? Keep out of the reach of children. Store in a refrigerator between 2 and 8 degrees C (36 and 46 degrees F). Throw away any unused medicine after the expiration date. What should I tell my health care provider before I take this medicine? They need to know if you have any of these conditions: glaucoma high blood pressure or heart disease kidney disease liver disease lung or breathing disease, like asthma prostate trouble pain or difficulty passing urine seizures an unusual or allergic reaction to promethazine or phenothiazines, other medicines, foods, dyes, or preservatives or trying to get breast-feeding What should I watch for while using this medicine? Tell your doctor or health primary care provider if your symptoms do not start to get better in 1 to 2 days. You may get drowsy or dizzy. Do not drive, use machinery, or do anything that needs mental alertness until you know how this medicine affects you. To reduce the risk of dizzy or fainting spells, do not stand or sit up quickly, especially if you are an older patient. Alcohol may increase dizziness and drowsiness. Avoid alcoholic drinks. Your mouth may get dry. Chewing sugarless gum or sucking hard candy, and drinking plenty of water may help. Contact your doctor if the problem does not go away or is severe. This medicine may cause dry eyes and blurred vision. If you wear contact lenses you may feel some discomfort. Lubricating drops may help. See your eye doctor if the problem does not go away or is severe. This medicine can make you more sensitive to the sun. Keep out of the sun. If you cannot avoid being in the sun, wear protective clothing and use sunscreen. Do not use sun lamps or tanning beds/booths. If you are diabetic, check your blood-sugar levels regularly. You have been given the following additional information: Alcohol Withdrawal Opiate Abuse Ondansetron Oral disintegrating tablet Lorazepam Oral tablet Clonidine Hydrochloride Oral tablet Promethazine Hydrochloride Rectal suppository Do not work for five days. (Electronically signed by Jasvir Fong DO 12/12/2016 10:48)
== END 2016-12-11 10:04 | disposition home or self-care (01) ==
LOC: ED SRH 07:48
DX: F13.180 Sedative, hypnotic or anxiolytic abuse with sedative, hypnotic or anxiolytic-induced anxiety disorder (principal); F11.188 Opioid abuse with other opioid-induced disorder; Z79.899 Other long term (current) drug therapy